=== PATIENT | male | born 1950 | race Caucasian/White ===

== ENCOUNTER 2017-01-20 17:27 | Inpatient (IN) | payer OTHER ==
[~2017-01-20] VITALS: Ht 170.2 cm; Wt 96.8 kg
[~2017-01-20 17:27] MED LIST: ASPI325T39 PO; CARV12.5 PO; CHOL100010 PO; CLOP1TAB15 PO; COEN90TA PO; DILT240C57 PO; ESCI1TAB10 PO; EZET10TA63 PO; FAMO20TA11 PO; GLC/500 PO; INSUINJ4 SQ; ISOS120T5 PO; MULT-506 PO; NTRGSL/4 UT; NVLGI SC; PSYL55.43 PO; RANO500T PO; ROSU40TA PO
[2017-01-20] MEDS ORDERED: ASPIRIN 81 MG CHEW PO STA (17:38)
[2017-01-20] MEDS ORDERED: METOPROLOL TARTRATE 1 MG/ML VIAL IV STA (17:42)
[2017-01-20] MEDS ORDERED: NITROGLYCERIN OINT 2% 1GM PACKET EXT ONE (17:45)
[2017-01-20] MEDS ORDERED: MoRPHine SULFATE 4 MG/ML 1 ML CARP\\VIAL IV PRN (17:45)
--- NOTE | 2017-01-20 17:51 | EMERGENCY ROOM VISIT NOTE ---
History Report prepared by Nora: Krystle Duval Under the Supervision of: Dr. Ulysses Arriaga D.O. 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 The patient currently rates his pain as a 7/10 in severity. The patient states that this morning he had a CT scan with contrast for coronary stenosis. The patient states after the scan he went out to lunch and then began having chest pain. He states the pain radiates into his left arm down into his thumb and into the left side of his jaw. The patient states he tried to rest but nothing alleviated his pain. The patient states he took about 5-6 nitroglycerin without any relief of his symptoms causing him to come into the ED. He states he has an extensive cardiac history and had a bypass at the age of 39 and has had several coronary stents placed. The patient states he has never had a myocardial infarction in the past. He state since last heart catheterization was about 4 years ago but denies having any stress testing done. The patient states at his last catheterization he did not have any new stents placed. The patient denies any SOB, nausea, or swelling or pain in his legs. 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 Review of Systems See HPI for pertinent positives & negatives. A total of 10 systems reviewed and were otherwise negative. Past Medical & Surgical Medical Problems: (1) Inguinal hernia (2) Insulin dependent diabetes mellitus (3) Sleep apnea Surgical Problems: (1) History of coronary artery stent placement Family History Patient reports no known family medical history. Social History Smoking Status: Never Smoker Alcohol Use: none Drug Use: none Marital Status: Housing Status: lives with significant other Occupation Status: retired Current/Historical Medications Scheduled Aspirin (Aspirin Ec), 325 MG PO QAM Budesonide/Formoterol Fumarate (Symbicort 160/4.5 Inhaler ), 2 PUFFS INH BID Carvedilol (Coreg), 12.5 MG PO BID Cholecalciferol (Vitamin D), 2,000 INTER.UNIT PO BID Clopidogrel (Plavix), 75 MG PO QAM Coenzyme Q10 (Ubidecarenone) (Co Q10), 1 TAB PO HS Diltiazem Hcl Coated Beads (Cardizem Cd), 120 MG PO BID Escitalopram Oxalate (Lexapro), 20 MG PO HS Ezetimibe (Zetia), 10 MG PO HS Famotidine (Pepcid), 20 MG PO QAM Insulin Aspart (Novolog), 25-30 UNITS SC TIDM Insulin Glargine (Lantus Solostar Pen), 45 UNIT SQ HS Isosorbide Mononitrate Ext Rel (Imdur Ext Rel), 120 MG PO QAM Metformin Hcl (Glucophage), 1,000 MG PO BID Multivitamin (Multivitamin), 1 TAB PO QAM Psyllium (Metamucil), 1 DOSE PO DAILY Ranolazine (Ranexa), 1 TAB PO BID Rosuvastatin Calcium (Crestor), 40 MG PO HS Scheduled PRN Nitroglycerin (Nitrostat), 0.4 MG UT PRN PRN for CHEST PAIN Allergies Coded Allergies: Sulfa Antibiotics (Verified Allergy, Severe, HIVES, 01/20/17) LISTED "SULFA"; PER EXTERNAL HISTORY LISTED ITCHING Penicillins (Verified Allergy, Mild, TOLD HE HAD ALLERGY A CHILD; HIVES , 01/20/17) PER EXTERNAL HISTORY HIVES Tetracycline (Verified Allergy, Mild, RASH, 01/20/17) ALLERGY LISTED IN EXTERNAL HISTORY Uncoded Allergies: IV CONTRAST DYE (Allergy, Unknown, HIVES, 05/01/16) Physical Exam Vital Signs Date Time Temp Pulse Resp B/P Pulse Ox O2 Delivery O2 Flow Rate FiO2 01/20/17 18:29 102 148/85 01/20/17 18:09 100 151/94 94 Room Air 01/20/17 17:51 99 01/20/17 17:45 Room Air 01/20/17 17:45 96 Room Air 01/20/17 17:45 97 Room Air 01/20/17 17:40 102 20 201/109 96 Room Air 01/20/17 17:34 36.5 106 20 182/88 96 Physical Exam GENERAL: Patient is awake, alert, and somewhat anxious and uncomfortable appearing. EYES: The conjunctivae are clear. The pupils are round and reactive. EARS, NOSE, MOUTH AND THROAT: The nose is without any evidence of any deformity. Mucous membranes are moist tongue is midline NECK: The neck is nontender and supple. RESPIRATORY: Normal respiratory effort is noted there is no evidence of wheezing rhonchi or rales CARDIOVASCULAR: Regular rate and rhythm noted there no murmurs rubs or gallops normal S1 normal S2 GASTROINTESTINAL: The abdomen is soft. Bowel sounds are present in all quadrants. Abdomen is nontender MUSCULOSKELETAL/EXTREMITIES: There is no evidence of gross deformity full range of motion is noted in the hips and shoulders SKIN: There is no obvious evidence of any rash. There are no petechiae, pallor or cyanosis noted. NEUROLOGIC: Patient is awake alert and oriented x3. Medical Decision & Procedures ER Provider Diagnostic Interpretation: X-ray results as stated below per interpretation by me and the radiologist. CHEST ONE VIEW PORTABLE CLINICAL HISTORY: CHEST PAIN dyspnea COMPARISON STUDY: 11/03/2016 FINDINGS: Prior median sternotomy. Diaphragms smooth. Lungs are clear. IMPRESSION: No acute process Electronically signed by: Anthony Groves M.D. 01/20/2017 5:57 PM Dictated Date/Time: 01/20/2017 5:57 PM Laboratory Results 01/20/17 17:50 Red Blood Count 4.87, Mean Corpuscular Volume 84.0, Mean Corpuscular Hemoglobin 29.0, Mean Corpuscular Hemoglobin Concent 34.5, Mean Platelet Volume 8.9, Neutrophils (%) (Auto) 88.2, Lymphocytes (%) (Auto) 6.3, Monocytes (%) (Auto) 5.1, Eosinophils (%) (Auto) 0.0, Basophils (%) (Auto) 0.0, Neutrophils # (Auto) 11.97, Lymphocytes # (Auto) 0.86, Monocytes # (Auto) 0.69, Eosinophils # (Auto) 0.00, Basophils # (Auto) 0.00 01/20/17 17:50 Test 01/20/17 17:50 01/20/17 17:54 White Blood Count 13.57 K/uL (4.8-10.8) Red Blood Count 4.87 M/uL (4.7-6.1) Hemoglobin 14.1 g/dL (14.0-18.0) Hematocrit 40.9 % (42-52) Mean Corpuscular Volume 84.0 fL (80-100) Mean Corpuscular Hemoglobin 29.0 pg (25-34) Mean Corpuscular Hemoglobin Concent 34.5 g/dl (32-36) Platelet Count 279 K/uL (130-400) Mean Platelet Volume 8.9 fL (7.4-10.4) Neutrophils (%) (Auto) 88.2 % Lymphocytes (%) (Auto) 6.3 % Monocytes (%) (Auto) 5.1 % Eosinophils (%) (Auto) 0.0 % Basophils (%) (Auto) 0.0 % Neutrophils # (Auto) 11.97 K/uL (1.4-6.5) Lymphocytes # (Auto) 0.86 K/uL (1.2-3.4) Monocytes # (Auto) 0.69 K/uL (0.11-0.59) Eosinophils # (Auto) 0.00 K/uL (0-0.5) Basophils # (Auto) 0.00 K/uL (0-0.2) RDW Standard Deviation 45.7 fL (36.4-46.3) RDW Coefficient of Variation 14.8 % (11.5-14.5) Immature Granulocyte % (Auto) 0.4 % Immature Granulocyte # (Auto) 0.05 K/uL (0.00-0.02) Prothrombin Time 10.9 SECONDS (9.0-12.0) Prothromb Time International Ratio 1.0 (0.9-1.1) Activated Partial Thromboplast Time 23.1 SECONDS (21.0-31.0) Partial Thromboplastin Ratio 0.9 Anion Gap 14.0 mmol/L (3-11) Est Creatinine Clear Calc Drug Dose 74.7 ml/min Estimated GFR () 81.2 Estimated GFR (Non- 70.1 BUN/Creatinine Ratio 15.5 (10-20) Calcium Level 10.0 mg/dl (8.5-10.1) Total Bilirubin 0.2 mg/dl (0.2-1) Direct Bilirubin < 0.1 mg/dl (0-0.2) Aspartate Amino Transf (AST/SGOT) 18 U/L (15-37) Alanine Aminotransferase (ALT/SGPT) 44 U/L (12-78) Alkaline Phosphatase 69 U/L (45-117) Total Creatine Kinase 218 U/L (39-308) Creatine Kinase MB 4.7 ng/ml (0.5-3.6) Creatine Kinase MB Ratio 2.2 (0-3.0) Total Protein 7.9 gm/dl (6.4-8.2) Albumin 3.7 gm/dl (3.4-5.0) Lipase 111 U/L (73-393) Bedside Troponin I 0.000 ng/ml (0-0.045) Laboratory results per my review. Medications Administered Medications (Trade) Dose Ordered Sig/Tarah Route Start Time Stop Time Status Last Admin Dose Admin Aspirin (Aspirin Chew) 324 mg NOW STAT PO 01/20/17 17:38 01/20/17 17:40 DC 01/20/17 18:01 324 MG Morphine Sulfate (MoRPHine SULFATE INJ) 4 mg Q15M PRN IV 01/20/17 17:45 02/03/17 17:44 01/20/17 18:02 4 MG Nitroglycerin (Nitroglycerin 2% Oint) 1 inch NOW ONCE EXT 01/20/17 17:45 01/20/17 17:46 DC 01/20/17 18:01 1 INCH Metoprolol Tartrate (Lopressor Iv) 15 mg NOW STAT IV 01/20/17 17:42 01/20/17 17:43 DC 01/20/17 18:29 15 MG Heparin Sodium/ Dextrose 1 ea 1 ea NOW STAT N/A 01/20/17 18:03 01/20/17 18:04 DC 01/20/17 18:03 1 EA Heparin Sodium/ Dextrose (Heparin 25,000 Unit/500ml D5W) 500 ml @ 28 mls/hr [id number] PRN IV 01/20/17 18:15 02/19/17 18:14 01/20/17 18:29 28 MLS/HR Heparin Sodium (Porcine) (Heparin Iv Bolus) 6,000 unit NOW ONCE IV 01/20/17 18:15 01/20/17 18:16 DC 01/20/17 18:27 6,000 UNIT Carvedilol (Coreg Tab) 6.25 mg NOW STAT PO 01/20/17 19:09 01/20/17 19:10 DC 01/20/17 19:13 6.25 MG ECG Indication: chest pain Rate (beats per minute): 98 Rhythm: normal sinus Findings: ST depression (Inferior and Lateral), no ectopy, other (LVH noted by voltage criteria. ) Comparison ECG Date: Change: All changes compared to old are new. EKG #2: Normal sinus rhythm with a rate of 9. No ectopy, and improvement of previous noted ST abnormalities. ED Course 1736: The patient was evaluated in room A2. A complete history and physical examination were performed. 1738: Ordered Aspirin 324 mg PO. 174: Ordered Lopressor Iv 15 mg IV. 1745: Ordered Nitroglycerin 1 inch EXT, Morphine Sulfate 4 mg IV. 1753: I discussed the case with Dr. Leal Cardiology. He recommended aggressively treating cardiac chest pain and to consider transfer due to the patient's underlying coronary anatomy. 1803: Ordered Heparin Sodium/ Dextrose Standard with Bolus IV. 1815: Ordered Heparin Sodium (Porcine) 6,000 unit IV, Heparin Sodium/ Dextrose 500 ml @ 28 mls/hr IV. 1825: I discussed the case with the [facility] certified histologic technician. He agreed to accept the patient as a transfer. 1830: I spoke to Dr. Leal Cardiology and he states that if the patient is admitted into the hospital he can manage the patient's care overnight because he is familiar with the patient's case. I informed him I would call the hospitalist and cancel the transfer of the patient. 1845: I discussed the case with Dr. Martin ALEXANDER Hospitalist. He agreed to evaluate the patient for further management and care. Medical Decision Prior records/ancillary studies reviewed. Triage Nursing notes reviewed. The patient's history was concerning for chest pain. Differential diagnosis: Etiologies such as cardiac ischemia, aortic dissection, pulmonary embolism, pneumonia, pneumothorax, musculoskeletal, infections, pericarditis, myocarditis , esophageal rupture, gastrointestinal, as well as others were entertained. The patient is a 66-year-old male who presented to the emergency department for an evaluation of left-sided chest pain. The patient has a history of coronary artery disease. He had cardiac bypass when he was in his late thirties. The patient has had cardiac catheterizations since that time and his required stenting. His most recent cardiac catheterization from 2012 did not require stenting but he still has significant coronary artery disease. The patient presented to the emergency department with left-sided chest pain that he felt was consistent with his previous episodes of angina. The patient took multiple nitroglycerin tablets without relief. The patient was further treated with nitroglycerin and morphine aspirin and beta blockers in the emergency department. He was then started on a heparin drip. On subsequent reevaluation his pain was significantly improved and his EKG appeared significantly improved as well. I discussed his case with his primary certified histologic technician. He was evaluated by his primary certified histologic technician in the emergency department. Initially we felt the patient may benefit from transfer to a tertiary center where they're more familiar with his coronary anatomy but because the patient's symptoms quickly improved he was felt to be a good candidate to stay at our facility. I also discussed this case with the on-call [facility] hospitalist. They've agreed to evaluate the patient in the emergency department for further management and disposition. Consults Time Called: 1750 Consulting Physician: Dr. Leal Cardiology Returned Call: [phone] I discussed the case with Dr. Leal Cardiology. He recommended aggressively treating cardiac chest pain and to consider transfer due to the patient's underlying coronary anatomy. Additional Consults: Time Called: 1819 Consulted Physician: Karen Cardiology. Returned Call: [phone] Additional Comments: I discussed the case with the [facility] certified histologic technician. He agreed to accept the patient as a transfer. Time Called: 184 Consulted Physician: Dr. Martin ALEXANDER Hospitalist Returned Call: [phone] Additional Comments: I discussed the case with Dr. Martin ALEXANDER Hospitalaguilar. He agreed to evaluate the patient for further management and care. Impression Primary Impression: Unstable angina Additional Impressions: Left sided chest pain Abnormal EKG Critical Care I have personally spent greater than 60 minutes of critical care time in the direct management of this patient. This includes bedside care, interpretation of diagnostic studies, and testing, discussion with consultants, patient, and family members, and other required patient management activities. This 60 minutes is in excess of all separately billable procedures. Scribe Attestation The scribe's documentation has been prepared under my direction and personally reviewed by me in its entirety. I confirm that the note above accurately reflects all work, treatment, procedures, and medical decision making performed by me. Departure Information Dispostion Being Evaluated By Hospitalist Referrals Ulysses Werner M.D. (PCP) Patient Instructions My [facility] Problem Qualifiers
--- NOTE | 2017-01-20 17:58 | DIAGNOSTIC IMAGING REPORT ---
CHEST ONE VIEW PORTABLE CLINICAL HISTORY: CHEST PAIN dyspnea COMPARISON STUDY: 11/03/2016 FINDINGS: Prior median sternotomy. Diaphragms smooth. Lungs are clear. IMPRESSION: No acute process Electronically signed by: Anthony Groves M.D. 01/20/2017 5:57 PM Dictated Date/Time: 01/20/2017 5:57 PM
[2017-01-20 17:59] LABS: COMPLETE YES; HEMATOCRIT 40.9 % (42-52); IG% 0.4 %; LYMPH % 6.3 %; LYMPH ABS # 0.86 K/uL (1.2-3.4); MEAN CORPUSCULAR HGB CONC 34.5 g/dl (32-36); MEAN PLATELET VOLUME 8.9 fL (7.4-10.4); MONO % 5.1 %; NEUT % 88.2 %; PLATELET COUNT 279 K/uL (130-400); RED BLOOD COUNT 4.87 M/uL (4.7-6.1); WHITE BLOOD COUNT 13.57 K/uL (4.8-10.8)
[2017-01-20] MEDS ORDERED: SYMIN160 INH (18:10)
[2017-01-20 18:11] LABS: PARTIAL THROMBOPLASTIN RATIO 0.9; PROTHROMBIN TIME (PATIENT) 10.9 SECONDS (9.0-12.0)
[2017-01-20] MEDS ORDERED: PSYL48.59 PO (18:11)
[2017-01-20] MEDS ORDERED: HEPARIN SOD (PORCINE) 1000 UNIT/ML 10 ML VIAL IV ONE (18:15)
[2017-01-20 18:17] LABS: ALT/SGPT 44 U/L (12-78); BLOOD UREA NITROGEN 17 mg/dl (7-18); BUN/CREATININE RATIO 15.5 (10-20); CARBON DIOXIDE 23 mmol/L (21-32); CHLORIDE 98 mmol/L (98-107); GLUCOSE 290 mg/dl (70-99); POTASSIUM 4.2 mmol/L (3.5-5.1); SODIUM 135 mmol/L (136-145)
[2017-01-20 18:22] LABS: ALKALINE PHOSPHATASE 69 U/L (45-117); AST/SGOT 18 U/L (15-37); CKMB/CK RATIO 2.2 (0-3.0)
[2017-01-20] MEDS: HEPARIN 25,000 UNIT/500ML D5W 500 ML IV PRN (18:29)
[2017-01-20] MEDS ORDERED: CARVEDILOL 12.5 MG TAB PO ONE (18:58)
[2017-01-20] MEDS ORDERED: CARVEDILOL 3.125 MG TAB PO STA (19:09)
[2017-01-20 19:51] VITALS: Ht 170.2 cm; Wt 96.8 kg
[2017-01-20] MEDS ORDERED: MoRPHine SULFATE 2 MG/ML CARP IV PRN (21:00)
[2017-01-20] MEDS ORDERED: CARVEDILOL 12.5 MG TAB PO SCH (21:00)
[2017-01-20] MEDS ORDERED: ONDANSETRON INJ 2 MG/ML 2 ML VIAL IV PRN (21:00)
[2017-01-20] MEDS ORDERED: ESCITALOPRAM OXALATE 20 MG TAB PO SCH (21:00)
[2017-01-20] MEDS ORDERED: ZOLPIDEM TARTRATE 5 MG TAB PO PRN (21:00)
[2017-01-20] MEDS ORDERED: INSULIN GLARGINE SOLOSTAR 100 UNITS/ML 3 ML PEN SQ SCH (21:00)
[2017-01-20] MEDS ORDERED: POLYETHYLENE (MIRALAX) 17 GM PACK PO PRN (21:00)
[2017-01-20] MEDS ORDERED: ACETAMINOPHEN 325 MG TAB PO PRN (21:00)
[2017-01-20] MEDS ORDERED: ALUMINUM/MAGNESIUM/SIMETH (MAALOX MAX) 30 ML UDC PO PRN (21:00)
[2017-01-20] MEDS ORDERED: ROSUVASTATIN CALCIUM 20 MG TAB PO SCH (21:00)
[2017-01-20] MEDS ORDERED: MAGNESIUM HYDROXIDE SUSP 30 ML UDC PO PRN (21:00)
[2017-01-20] MEDS ORDERED: NITROGLYCERIN 0.4 MG SL PER TAB CHARGE SL PRN (21:00)
--- NOTE | 2017-01-20 21:25 | History and Physical ---
History & Physical Date & Time of Service: Jan 20, 2017 at 21:19 Chief Complaint: Acute Angina Primary Care Physician: Ulysses Werner M.D. History of Present Illness Source: patient 66 y/o M w/Hx CAD, familial hypercholesterolemia, triple bypass at age 39 and chronic angina on Ranexa. The pt states that he normally has between 0-4 episodes of transient CP daily which he treats with NTG. He underwent a catheterization a few years ago which demonstrated disease that was largely peripheral and not amenable to stenting. He developed CP prior to arrival which was more severe and lasted longer than usual. The pain eventually radiated to his lower jaw and L arm prompting him to attend the emergency room. He denies SOB, lightheadedness or diaphoresis. The pts EKG was abnormal on arrival with lateral and inferior changes. It was noted that his systolic BP was above 200. His chest pain largely resolved following NTG,morphine and B blockers and he is asymptomatic at the time of admission. 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 The pt also states that he had undergone a CT angiogram of the carotid arteries one day prior which required pre-treatment with steroids due to contrast sensitivity. This may in turn have elevated his pressure leading to his persistent chest pain. The CT angio of his carotids did unfortunately reveal right carotid stenosis which will require stenting. Past Medical/Surgical History 1) CAD - 3V CABG age 39 - cardiac cath revealing small vessel disease 2) Chronic angina - on Ranexa 3) HTN 4) Familial hypercholesterolemia 5) Insulin dependent diabetes 6) Carotid stenosis R - scheduled for stenting. Family History Patient reports no known family medical history. 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 Smoking Status: Former Smoker Drug Use: none Marital Status: Occupational Status: retired Allergies Coded Allergies: Sulfa Antibiotics (Verified Allergy, Severe, HIVES, 01/20/17) LISTED "SULFA"; PER EXTERNAL HISTORY LISTED ITCHING Penicillins (Verified Allergy, Mild, TOLD HE HAD ALLERGY A CHILD; HIVES , 01/20/17) PER EXTERNAL HISTORY HIVES Tetracycline (Verified Allergy, Mild, RASH, 01/20/17) ALLERGY LISTED IN EXTERNAL HISTORY Uncoded Allergies: IV CONTRAST DYE (Allergy, Unknown, HIVES, 05/01/16) Home Medications Scheduled Aspirin (Aspirin Ec), 325 MG PO QAM Budesonide/Formoterol Fumarate (Symbicort 160/4.5 Inhaler ), 2 PUFFS INH BID Carvedilol (Coreg), 12.5 MG PO BID Cholecalciferol (Vitamin D), 2,000 INTER.UNIT PO BID Clopidogrel (Plavix), 75 MG PO QAM Coenzyme Q10 (Ubidecarenone) (Co Q10), 1 TAB PO HS Diltiazem Hcl Coated Beads (Cardizem Cd), 120 MG PO BID Escitalopram Oxalate (Lexapro), 20 MG PO HS Ezetimibe (Zetia), 10 MG PO HS Famotidine (Pepcid), 20 MG PO QAM Insulin Aspart (Novolog), 25-30 UNITS SC TIDM Insulin Glargine (Lantus Solostar Pen), 45 UNIT SQ HS Isosorbide Mononitrate Ext Rel (Imdur Ext Rel), 120 MG PO QAM Metformin Hcl (Glucophage), 1,000 MG PO BID Multivitamin (Multivitamin), 1 TAB PO QAM Psyllium (Metamucil), 1 DOSE PO DAILY Ranolazine (Ranexa), 1 TAB PO BID Rosuvastatin Calcium (Crestor), 40 MG PO HS Scheduled PRN Nitroglycerin (Nitrostat), 0.4 MG UT PRN PRN for CHEST PAIN Review of Systems Constitutional: No chills, No fever, No sweats Eyes: No eye pain, No worsening of vision ENT: No hearing loss, No nasal symptoms, No unusual epistaxis Respiratory: No cough, No sputum, No wheezing Cardiovascular: + chest pain, No PND, No orthopnea Abdomen: No nausea, No pain, No vomiting Musculoskeletal: No joint pain, No muscle pain Genitourinary - Male: No dysuria, No hematuria, No urinary frequency, No urinary urgency Neurologic: No memory loss, No paralysis, No weakness Psychiatric: No depression symptoms Endocrine: No fatigue Hematologic / Lymphatic: No abnormal bleeding/bruising, No clotting problems Integumentary: No rash Allergic / Immunologic: No environmental allergies Physical Exam Vital Signs Date Time Temp Pulse Resp B/P Pulse Ox O2 Delivery O2 Flow Rate FiO2 01/20/17 20:40 92 20 01/20/17 20:30 129/68 01/20/17 20:10 92 18 01/20/17 20:00 102/88 01/20/17 19:51 Room Air 01/20/17 19:40 93 22 01/20/17 19:30 128/71 01/20/17 19:10 90 18 01/20/17 19:03 147/80 01/20/17 18:45 141/76 01/20/17 18:40 93 21 95 Room Air 01/20/17 18:34 141/82 01/20/17 18:30 164/86 01/20/17 18:29 102 148/85 01/20/17 18:15 148/85 01/20/17 18:10 100 16 94 Room Air 01/20/17 18:09 100 151/94 94 Room Air 01/20/17 18:03 104 20 162/92 94 Room Air 01/20/17 17:51 99 01/20/17 17:45 Room Air 01/20/17 17:45 96 Room Air 01/20/17 17:45 97 Room Air 01/20/17 17:40 102 20 201/109 96 Room Air 01/20/17 17:34 36.5 106 20 182/88 96 General Appearance: WD/WN, no apparent distress Head: normocephalic, atraumatic Eyes: normal inspection, EOMI ENT: normal ENT inspection, hearing grossly normal Neck: supple, no adenopathy, thyroid normal, no JVD Respiratory/Chest: chest non-tender, lungs clear, normal breath sounds, no respiratory distress, no accessory muscle use Cardiovascular: regular rate, rhythm, no edema, no gallop, no JVD, no murmur, normal peripheral pulses Abdomen/GI: normal bowel sounds, non tender, soft Back: normal inspection, no CVA tenderness Extremities/Musculoskelatal: normal inspection, no calf tenderness, normal capillary refill, no pedal edema, normal range of motion Neurologic/Psych: safety compliance specialist II-XII nml as tested, no motor/sensory deficits, alert, normal mood/affect, normal reflexes, oriented x 3 Skin: normal color, warm/dry, no rash Diagnostics Laboratory Results Results Past 24 Hours Test 01/20/17 17:50 01/20/17 17:54 Range/Units White Blood Count 13.57 4.8-10.8 K/uL Red Blood Count 4.87 4.7-6.1 M/uL Hemoglobin 14.1 14.0-18.0 g/dL Hematocrit 40.9 42-52 % Mean Corpuscular Volume 84.0 80-100 fL Mean Corpuscular Hemoglobin 29.0 25-34 pg Mean Corpuscular Hemoglobin Concent 34.5 32-36 g/dl Platelet Count 279 130-400 K/uL Mean Platelet Volume 8.9 7.4-10.4 fL Neutrophils (%) (Auto) 88.2 % Lymphocytes (%) (Auto) 6.3 % Monocytes (%) (Auto) 5.1 % Eosinophils (%) (Auto) 0.0 % Basophils (%) (Auto) 0.0 % Neutrophils # (Auto) 11.97 1.4-6.5 K/uL Lymphocytes # (Auto) 0.86 1.2-3.4 K/uL Monocytes # (Auto) 0.69 0.11-0.59 K/uL Eosinophils # (Auto) 0.00 0-0.5 K/uL Basophils # (Auto) 0.00 0-0.2 K/uL RDW Standard Deviation 45.7 36.4-46.3 fL RDW Coefficient of Variation 14.8 11.5-14.5 % Immature Granulocyte % (Auto) 0.4 % Immature Granulocyte # (Auto) 0.05 0.00-0.02 K/uL Prothrombin Time 10.9 9.0-12.0 SECONDS Prothromb Time International Ratio 1.0 0.9-1.1 Activated Partial Thromboplast Time 23.1 21.0-31.0 SECONDS Partial Thromboplastin Ratio 0.9 Sodium Level 135 136-145 mmol/L Potassium Level 4.2 3.5-5.1 mmol/L Chloride Level 98 98-107 mmol/L Carbon Dioxide Level 23 21-32 mmol/L Anion Gap 14.0 3-11 mmol/L Blood Urea Nitrogen 17 7-18 mg/dl Creatinine 1.10 0.60-1.40 mg/dl Est Creatinine Clear Calc Drug Dose 74.7 ml/min Estimated GFR () 81.2 Estimated GFR (Non- 70.1 BUN/Creatinine Ratio 15.5 10-20 Random Glucose 290 70-99 mg/dl Calcium Level 10.0 8.5-10.1 mg/dl Total Bilirubin 0.2 0.2-1 mg/dl Direct Bilirubin < 0.1 0-0.2 mg/dl Aspartate Amino Transf (AST/SGOT) 18 15-37 U/L Alanine Aminotransferase (ALT/SGPT) 44 12-78 U/L Alkaline Phosphatase 69 45-117 U/L Total Creatine Kinase 218 39-308 U/L Creatine Kinase MB 4.7 0.5-3.6 ng/ml Creatine Kinase MB Ratio 2.2 0-3.0 Total Protein 7.9 6.4-8.2 gm/dl Albumin 3.7 3.4-5.0 gm/dl Lipase 111 73-393 U/L Bedside Troponin I 0.000 0-0.045 ng/ml EKG Sinus - Inf T wv inversions - slight lat depressions Impression Assessment and Plan 66 y/o M w/Hx, familial hypercholesterolemia, triple bypass at age 39 and chronic angina on Ranexa. The pt states that he normally has between 0-4 episodes of transient CP daily which he treats with NTG. He developed CP prior to arrival which was more severe and lasted longer than usual. The pain eventually radiated to his lower jaw and L arm prompting him to attend the emergency room. The pts EKG was abnormal on arrival with lateral and inferior changes. It was noted that his systolic BP was above 200. His chest pain largely resolved following NTG,morphine and B blockers and he is asymptomatic at the time of admission. 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 1) Chest pain / CAD - resolved with treatment of BP which was over 200 systolic on arrival. Pt placed on full dose anticoagulation with Heparin. Cont Carvedilol, Crestor, Ranexa. Transdermal NTG - NTG and Morphine PRN for pain - evaluated by his stripper apprentice. It was mentioned that if he does develop recurrent symptoms or clear indication for a cath, he should likely be transferred to [place] or [place]. He will be placed on telemetry and we will obtain serial troponins. 2) IDDM - sliding scale - metformin held 3) HTN - cont Diltiazem, Carvedilol, Imdur 4) Hpl - cont Crestor Full code - Full dose Heparin Total time for this admit including review of records, EKG, labs, meds - discussion with ER MD and pt - 39 min Level of Care Telemetry Advanced Directives Existing Living Will: Yes Existing Power of Cds Sales Advisor: Yes Resuscitation Status FULL RESUSCITATION VTE Prophylaxis VTE Risk Assessment Done? Y/N: Yes Risk Level: Moderate Given or contraindicated: Unfractionated heparin SQ
--- NOTE | 2017-01-20 21:53 | CARDIOLOGY CONSULTATION ---
DATE OF CONSULTATION: 01/20/2017 PRIMARY CARE PHYSICIAN: Dr. Ulysses Werner. REFERRING: Dr. Arriaga. INDICATIONS: Acute chest discomfort, angina pectoris. HISTORY OF PRESENT ILLNESS: The patient is a complex 66-year-old male whose history is notable for: 1. Atherosclerotic coronary artery disease with prior coronary artery bypass with initial diagnosis of angina pectoris in 1989, underlying coronary bypass surgery at that time, receiving left internal mammary artery graft to the left anterior descending and a snake saphenous vein graft single vessel, sequentially to the second diagonal, obtuse marginal, right posterolateral and right posterior descending artery. 2. Prior and subsequent multiple coronary interventions, most recent diagnostic cardiac catheterization in October 2013 with stable disease. 3. Chronic class 2-3 angina pectoris. 4. Hyperlipidemia. 5. Obstructive sleep apnea. 6. Hyperglycemia, diabetes mellitus. 7. Recent diagnosis of obstructive carotid artery disease with 70-99% stenosis of the right internal carotid artery. The patient presents today, noting having been in his usual state of health but presented for carotid CT angiography today as prerequisite planned right carotid artery stenting on 01/26/2017. The patient does carry a history of DYE ALLERGY and underwent prednisone prep prior to procedure. After procedure, he "went out to lunch," was feeling generally well and then began experiencing symptoms of chest pain and discomfort consistent with his prior angina with chest pressure, shortness of breath. He uses nitroglycerin as often as frequently as 2-3 per day and began using them today without relief, taking 4 or 5 nitroglycerins before he ultimately presented to the Emergency Room. On initial presentation today, he was found to be significantly hypertensive and mildly tachycardic, symptoms grade 7/10 with left chest discomfort radiating to the jaw. He was treated with sublingual nitroglycerin, topical nitrates and beta blockers with IV metoprolol with improvement in symptoms and now back to near baseline by his description. Initial troponin is negative. Initial EKG demonstrates chronic ST abnormalities in inferolateral leads but no acute ST elevation or profound ST segment deviation. He denies recent fevers, chills or sweats. Notes no cough, hoarseness, wheeze or hemoptysis. Notes no melena, hematochezia, dysuria or hematuria. Is anticipating carotid procedure as described. ALLERGIES: IV CONTRAST, PENICILLIN, SULFA, TETRACYCLINE. MEDICATIONS: Prior to presentation were aspirin 325 mg per day, carvedilol 12.5 mg p.o. b.i.d., vitamin D, clopidogrel 75 mg p.o. q. day, coenzyme Q10, Ranexa 500 mg p.o. b.i.d., NovoLog insulin, metformin 1500 mg q. day, Cardizem CD 120 mg b.i.d., Imdur 120 mg p.o. q. day, Crestor 40 mg p.o. q. day, Zetia 10 mg p.o. q. day, Lexapro 20 mg at bedtime, Pepcid 20 mg q. day, aspirin 81 mg in the past, now recently increased to 325 mg per day and a multivitamin per day. PAST SURGICAL HISTORY: Notable as described for coronary artery bypass grafting at age 39, remote tonsillectomy, inguinal herniorrhaphy. FAMILY HISTORY: Positive for heart disease. 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 PHYSICAL EXAMINATION: At the time of examination: VITAL SIGNS: Heart rate is 100, blood pressure is 148/85 with initial blood pressure on presentation of 182/88 and then increasing to 201/109. HEENT: Normocephalic and atraumatic. Face is mildly flushed. NECK: Thick. There is no distinct jugular venous distention. There is a right carotid bruit. LUNGS: Clear to auscultation. CARDIOVASCULAR: Regular with normal S1, S2. A less than grade 1/6 systolic murmur. ABDOMEN: Soft, nontender. There is no palpable hepatosplenomegaly. There is no hepatojugular reflux. EXTREMITIES: Without cyanosis or clubbing. There is no peripheral edema. There are intact distal pulses. LABORATORY DATA: Sodium is 135, potassium is 4.2, chloride 98, bicarb is 23, BUN 17, creatinine is 1.1, GFR 70, glucose is 290. Troponin is 0, initial CK is 218 but mildly elevated total CPK of 4.7. PT and PTT are normal. White cell count is 13.5, hemoglobin is 14.1, hematocrit is 40.9. EKG on presentation reveals sinus rhythm with inferolateral ST depression, though similar to prior studies of 01/12/2017 and 11/26/2015 on review, other than an increased heart rate. IMPRESSION: Complex 66-year-old male with known vascular disease, undergone prior remote coronary artery bypass grafting, history of stable class 2-3 angina pectoris, presents now with acute anginal exacerbation with marked hypertension and mild tachycardia. Discussed findings in detail, he is now improving in the ER symptomatically after medical therapies as described. I suspect symptoms may have been exacerbated by contrast and contrast prep with corticosteroids. Discussed options of management. We will treat as threatened infarct or unstable angina with IV heparin. Increase beta susan therapies and control blood pressure with nitrates and increased carvedilol. We will follow serial enzymes. If the patient has worsening of angina, we will consider transfer to tertiary care center for further investigation. Hospitalist service has been consulted to manage inpatient care and glucoses. We will follow along closely. The patient is agreeable to plan after discussion of various options including transfer.
[2017-01-20 22:00] VITALS: BP 134/71; PULSE 91; TEMP 36.8; O2SAT 93
[2017-01-20] MEDS ORDERED: DEXTROSE 50% 50 ML SYR IV PRN (22:15)
[2017-01-20] MEDS ORDERED: GLUCAGON FOR INJ 1 MG VIAL SQ PRN (22:15)
[2017-01-20] MEDS ORDERED: GLUCOSE 10 TABS/TUBE PO PRN (22:15)
[2017-01-20] MEDS ORDERED: GLUCOSE 40% GEL 15 GM TUBE PO PRN (22:15)
[2017-01-20] MEDS: BUDESONIDE/FORMOTEROL FUMARATE 160/4.5 60 PUFFS/INHALER INH SCH (22:45)
[2017-01-20] MEDS: RANOLAZINE 500 MG ER TAB PO SCH ×2 (22:45→23:03)
[2017-01-20] MEDS: DILTIAZEM HCL 120 MG CAPCR PO SCH ×2 (22:45→23:02)
[2017-01-20 23:29] VITALS: PULSE 82; O2SAT 95
[2017-01-20 23:35] VITALS: BP 120/75; PULSE 87; TEMP 37; O2SAT 95
[2017-01-21] MEDS: NITROGLYCERIN OINT 2% 1GM PACKET EXT SCH ×3 (00:06→11:39)
[2017-01-21] MEDS: INSULIN ASPART 100 UNITS/ML 3 ML PEN SC SCH ×3 (00:27→11:39)
[2017-01-21 01:04] LABS: PARTIAL THROMBOPLASTIN RATIO 1.7
[2017-01-21] MEDS ORDERED: HEPARIN IV BOLUS 3,000 UNIT in SYRINGE 0 ML IV ONE (01:30)
[2017-01-21] MEDS: HEPARIN 25,000 UNIT/500ML D5W 500 ML IV PRN ×2 (01:42→11:38)
[2017-01-21 04:09] VITALS: BP 120/74; PULSE 69; TEMP 36.8; O2SAT 95
[2017-01-21 07:27] VITALS: BP 127/71; PULSE 70; TEMP 36.5; O2SAT 96
[2017-01-21 08:13] LABS: PARTIAL THROMBOPLASTIN RATIO 2.3
[2017-01-21] MEDS: BUDESONIDE/FORMOTEROL FUMARATE 160/4.5 60 PUFFS/INHALER INH SCH (08:19)
[2017-01-21] MEDS: DILTIAZEM HCL 120 MG CAPCR PO SCH (08:20)
[2017-01-21] MEDS: RANOLAZINE 500 MG ER TAB PO SCH (08:20)
[2017-01-21] MEDS ORDERED: FAMOTIDINE 20 MG TAB PO SCH (09:00)
[2017-01-21] MEDS ORDERED: CLOPIDOGREL BISULFATE 75 MG TAB PO SCH (09:00)
[2017-01-21] MEDS ORDERED: CARVEDILOL 12.5 MG TAB PO SCH ×2 (09:00)
[2017-01-21] MEDS ORDERED: ISOSORBIDE MONONITRATE 60 MG TABCR PO SCH (09:00)
--- NOTE | 2017-01-21 09:47 | CARDIOLOGY PROGRESS NOTE ---
DATE: 01/21/2017 DATE: 01/21/2017. The patient seen and examined. Chart, medications, telemetry reviewed. SUBJECTIVE: The patient feels well this morning. He has had no further chest pains or discomfort. Notes no dizziness or lightheadedness. Heart rate and blood pressure improved. OBJECTIVE: VITAL SIGNS: Heart rate 70, blood pressure is 127/71. NECK: There is a right carotid bruit. There is no jugular venous distention. LUNGS: Clear. CARDIOVASCULAR EXAMINATION: Regular. There is no S3 gallop. ABDOMEN: Soft. EXTREMITIES: Without edema. LABORATORY DATA: Troponin is 4.3 this morning. EKG reveals sinus rhythm with nonspecific ST segment changes, inferolateral ST segment abnormalities from evening prior improved. IMPRESSION: Complex 66-year-old male with a history of diffuse coronary atherosclerosis, prior coronary bypass grafting in 1989 presents with symptoms of accelerated angina, possibly secondary to corticosteroids and hypertension in association with CT angiography of the neck. Symptoms, however, were prolonged and relieved with nitrates, beta blockers and IV heparin. Enzymes have increased substantially with troponin of 4. Discussed options of management. Given significant elevation, we will need to proceed with diagnostic cardiac catheterization. The patient has had previous procedures performed at [facility] in [place] and wishes to proceed there. Arrangements have been made for transfer to [facility] for anticipate procedure later today. Additional corticosteroids have not been administered this morning until procedure is assured. The patient is agreeable to plan. He has been n.p.o. after midnight except for current medications with notable increasing carvedilol since admission, topical nitrates placed in the Emergency Room.
--- NOTE | 2017-01-21 10:20 | Discharge Summary ---
Discharge Summary Date of Service Jan 21, 2017. Discharge Summary Admission Date: Jan 20, 2017 at 21:00 Discharge Date: Jan 21, 2017 Discharge Disposition: Acute care facility Principal Diagnosis: CAD; angina Problems/Secondary Diagnoses: 1) CAD - 3V CABG age 39 - cardiac cath revealing small vessel disease 2) Chronic angina 3) HTN 4) Familial hypercholesterolemia 5) Insulin dependent diabetes 6) Carotid stenosis R 7) GERD 8) Asthma 9) Depression Procedures: CHEST ONE VIEW PORTABLE CLINICAL HISTORY: CHEST PAIN dyspnea COMPARISON STUDY: 11/03/2016 FINDINGS: Prior median sternotomy. Diaphragms smooth. Lungs are clear. IMPRESSION: No acute process Electronically signed by: Anthony Groves M.D. 01/20/2017 5:57 PM Dictated Date/Time: 01/20/2017 5:57 PM The status of this report is Signed. Draft = Not yet reviewed or approved by Radiologist. Signed = Reviewed and approved by Radiologist. Consultations: Cardiology- Dr. Leal Discharge Exam Review of Systems: Constitutional: No chills, No fatigue, No fever, No sweats, No weakness ENT: No hearing loss Respiratory: No cough, No hemoptysis, No shortness of breath Cardiovascular: No chest pain, No edema, No palpitations Abdomen: No constipation, No diarrhea, No nausea, No pain, No vomiting Musculoskeletal: No calf pain, No joint pain, No muscle pain, No swelling Genitourinary - Male: No dysuria, No hematuria Neurologic: No numbness/tingling, No weakness Psychiatric: No anxiety, No depression symptoms Hematologic / Lymphatic: No abnormal bleeding/bruising Integumentary: No itch, No new/changing skin lesions, No rash Physical Exam: General Appearance: no apparent distress, + obese Eyes: normal inspection, PERRL ENT: hearing grossly normal Neck: supple Respiratory/Chest: lungs clear, no respiratory distress, no accessory muscle use Cardiovascular: regular rate, rhythm Abdomen / GI: normal bowel sounds, non tender, soft Extremities: no calf tenderness, no pedal edema Neurologic/Psychiatric: alert, normal mood/affect, oriented x 3 Skin: normal color, warm/dry, no rash Hospital Course HPI at admission: 66 y/o M w/Hx CAD, familial hypercholesterolemia, triple bypass at age 39 and chronic angina on Ranexa. The pt states that he normally has between 0-4 episodes of transient CP daily which he treats with NTG. He underwent a catheterization a few years ago which demonstrated disease that was largely peripheral and not amenable to stenting. He developed CP prior to arrival which was more severe and lasted longer than usual. The pain eventually radiated to his lower jaw and L arm prompting him to attend the emergency room. He denies SOB, lightheadedness or diaphoresis. The pts EKG was abnormal on arrival with lateral and inferior changes. It was noted that his systolic BP was above 200. His chest pain largely resolved following NTG, morphine and B blockers and he is asymptomatic at the time of admission. He was evaluated by his presser all around while in the ER. The pt also states that he had undergone a CT angiogram of the carotid arteries one day prior which required pre-treatment with steroids due to contrast sensitivity. This may in turn have elevated his pressure leading to his persistent chest pain. The CT angio of his carotids did unfortunately reveal right carotid stenosis which will require stenting. Chest pain/CAD s/p CABG, ?angina secondary to corticosteroid and HTN: - Admit tele for cardiac monitoring- reviewed--> no acute events overnight, sinus rhythm - Trend cardiac enzymes--> peak trop 4.350 - IV full dose anticoagulation with Heparin - Carvedilol increased to 18.75 mg BID from 12.5 mg BID, Crestor 40 mg HS, Ranexa 500 mg BID, Plavix 75 mg daily, Cardizem 120 mg BID, Imdur 120 mg QAM - Transdermal NTG - NTG and Morphine PRN for pain - Consulted cardiology, appreciate recommendations--> due to significant elevation in enzymes, cardiac cath needed, patient wishes to proceed at [facility] in [place] IDDM: - Lantus 45 u SQ HS - BSG ACHS with sliding scale - Metformin held YVONNE: Continue CPAP HTN: Continue Diltiazem, Carvedilol, Imdur Hyperlipidemia: Continue Crestor and Zetia 10 mg HS Asthma: Continue Symbicort Depression: Continue Lexapro 20 mg HS GERD: Continue Pepcid DVT prophylaxis: Full dose heparin Code Status: LEVEL I, FULL Dispo: Transfer to [facility] Total Time Spent: Greater than 30 minutes This includes examination of the patient, discharge planning, medication reconciliation, and communication with other providers. Discharge Instructions Please refer to the electronic Patient Visit Report (Discharge Instructions) for additional information. Follow-Up Please follow-up with your PCP within 5-7 days after discharge from [facility] Please follow-up/keep all of your subspecialty appointments Additional Copies To Ulysses Werner M.D.
[2017-01-21 11:35] VITALS: BP 133/74; PULSE 65; TEMP 36.6; O2SAT 93
[2017-01-21 15:49] VITALS: BP 133/74; PULSE 65; TEMP 36.6; O2SAT 93
[2017-01-21 16:00] VITALS: BP 125/78; PULSE 64; TEMP 36.4; O2SAT 93
== END 2017-01-21 16:10 | disposition short-term general hospital (02) | DRG 303 ==
LOC: ENRESERVTM → ENRESERVDT → C.EDB 17:27 → C.2T 21:00
PROVIDERS: ADMIT Internal Medicine; ATTEND Internal Medicine
DX: I25.119 Atherosclerotic heart disease of native coronary artery with unspecified angina pectoris (principal); T38.0X5A Adverse effect of glucocorticoids and synthetic analogues, initial encounter; I10 Essential (primary) hypertension; R00.0 Tachycardia, unspecified; E78.01 Familial hypercholesterolemia; E11.9 Type 2 diabetes mellitus without complications; I65.21 Occlusion and stenosis of right carotid artery; K21.9 Gastro-esophageal reflux disease without esophagitis; J45.909 Unspecified asthma, uncomplicated; F32.9 Major depressive disorder, single episode, unspecified; G47.33 Obstructive sleep apnea (adult) (pediatric); Z95.1 Presence of aortocoronary bypass graft; Z95.5 Presence of coronary angioplasty implant and graft; Z98.890 Other specified postprocedural states; Z91.041 Radiographic dye allergy status; Z87.891 Personal history of nicotine dependence; Z79.82 Long term (current) use of aspirin; Z79.51 Long term (current) use of inhaled steroids; Z79.02 Long term (current) use of antithrombotics/antiplatelets; Z79.4 Long term (current) use of insulin; Z79.84 Long term (current) use of oral hypoglycemic drugs; Z79.899 Other long term (current) drug therapy

== ENCOUNTER → 2017-02-04 | Outpatient (CLI) | payer OTHER ==
[~2017-02-04] MED LIST changes: +PSYL48.59 PO; -PSYL55.43 PO; +SYMIN160 INH
[2017-02-04 10:08] LABS: BASO % 0.3 %; BASO ABS # 0.02 K/uL (0-0.2); COMPLETE YES; EOS % 3.3 %; HEMATOCRIT 32.9 % (42-52); IG% 0.1 %; LYMPH % 22.1 %; LYMPH ABS # 1.49 K/uL (1.2-3.4); MEAN CELL VOLUME 84.4 fL (80-100); MEAN CORPUSCULAR HEMOGLOBIN 28.7 pg (25-34); MEAN PLATELET VOLUME 8.7 fL (7.4-10.4); NEUT % 62.2 %; PLATELET COUNT 363 K/uL (130-400); WHITE BLOOD COUNT 6.75 K/uL (4.8-10.8)
[2017-02-04 10:54] LABS: BLOOD UREA NITROGEN 18 mg/dl (7-18); BUN/CREATININE RATIO 16.5 (10-20); CALCIUM 9.5 mg/dl (8.5-10.1); CARBON DIOXIDE 29 mmol/L (21-32); CHLORIDE 103 mmol/L (98-107); GLUCOSE 262 mg/dl (70-99); POTASSIUM 4.3 mmol/L (3.5-5.1); SODIUM 138 mmol/L (136-145)
== END | disposition home or self-care (01) ==
LOC: C.LAB 09:27
PROVIDERS: ATTEND Internal Medicine
DX: I20.9 Angina pectoris, unspecified (principal)

== ENCOUNTER → 2017-04-08 | Outpatient (CLI) | payer OTHER ==
[2017-04-08 09:35] LABS: BASO % 0.6 %; BASO ABS # 0.04 K/uL (0-0.2); COMPLETE YES; HEMATOCRIT 40.1 % (42-52); IG% 0.2 %; LYMPH % 24.9 %; LYMPH ABS # 1.61 K/uL (1.2-3.4); MEAN CELL VOLUME 83.7 fL (80-100); MEAN CORPUSCULAR HEMOGLOBIN 26.5 pg (25-34); MEAN CORPUSCULAR HGB CONC 31.7 g/dl (32-36); MEAN PLATELET VOLUME 8.6 fL (7.4-10.4); MONO % 9.7 %; NEUT % 60.6 %; PLATELET COUNT 308 K/uL (130-400); RED BLOOD COUNT 4.79 M/uL (4.7-6.1); WHITE BLOOD COUNT 6.47 K/uL (4.8-10.8)
[2017-04-08 09:42] LABS: ESTIMATED AVERAGE GLUCOSE 163 mg/dl; HA1C FLAG Normal (Normal)
[2017-04-08 10:15] LABS: ALT/SGPT 31 U/L (12-78); AST/SGOT 14 U/L (15-37); BLOOD UREA NITROGEN 12 mg/dl (7-18); BUN/CREATININE RATIO 12.8 (10-20); CALCIUM 9.4 mg/dl (8.5-10.1); CARBON DIOXIDE 27 mmol/L (21-32); CHLORIDE 107 mmol/L (98-107); CHOLESTEROL 137 mg/dl (0-200); CREATININE 0.95 mg/dl (0.60-1.40); GLUCOSE 184 mg/dl (70-99); POTASSIUM 4.5 mmol/L (3.5-5.1); SODIUM 141 mmol/L (136-145)
[2017-04-08 10:18] LABS: CHOLESTEROL/HDL RATIO 2.2; HDL CHOLESTEROL 62 mg/dl; LDL CHOLESTEROL CALCULATED 57 mg/dl; TRIGLYCERIDES 92 mg/dl (0-150); VERY LOW DENSITY LIPOPROT CALC 18 mg/dl
== END | disposition home or self-care (01) ==
LOC: C.LAB 08:58
PROVIDERS: ATTEND Internal Medicine
DX: E78.5 Hyperlipidemia, unspecified (principal); E55.9 Vitamin D deficiency, unspecified; E11.9 Type 2 diabetes mellitus without complications; K76.0 Fatty (change of) liver, not elsewhere classified

== ENCOUNTER → 2017-10-19 | Outpatient (CLI) | payer OTHER ==
[2017-10-19 10:07] LABS: AST/SGOT 17 U/L (15-37); BLOOD UREA NITROGEN 14 mg/dl (7-18); BUN/CREATININE RATIO 15.3 (10-20); CALCIUM 9.6 mg/dl (8.5-10.1); CARBON DIOXIDE 25 mmol/L (21-32); CHLORIDE 106 mmol/L (98-107); CHOLESTEROL 145 mg/dl (0-200); CREATININE 0.91 mg/dl (0.60-1.40); GLUCOSE 174 mg/dl (70-99); POTASSIUM 4.4 mmol/L (3.5-5.1); SODIUM 138 mmol/L (136-145)
[2017-10-19 10:13] LABS: ALT/SGPT 40 U/L (12-78); CHOLESTEROL/HDL RATIO 1.9; HDL CHOLESTEROL 75 mg/dl; LDL CHOLESTEROL CALCULATED 52 mg/dl; TRIGLYCERIDES 90 mg/dl (0-150); VERY LOW DENSITY LIPOPROT CALC 18 mg/dl
[2017-10-19 10:24] LABS: ESTIMATED AVERAGE GLUCOSE 180 mg/dl; HA1C FLAG Normal (Normal)
[2017-10-19 11:46] LABS: RATIO 9.1 mcg/mg (0-30.0)
== END | disposition home or self-care (01) ==
LOC: C.LAB 08:13
PROVIDERS: ATTEND Internal Medicine
DX: E11.9 Type 2 diabetes mellitus without complications (principal); E78.5 Hyperlipidemia, unspecified